=== PATIENT | male | born 1980 | race Caucasian/White ===

== ENCOUNTER → 2021-05-07 | Outpatient (CLI) | payer OTHER ==
[~2021-05-07] MED LIST: LISI5 PO; Naprosyn500 MG PO; Paxil40 MG PO; Percocet 7.5-31 EACH PO; Valium5 MG PO
== END ==
LOC: LAB SHORT 14:50 → LAB 14:50
DX: D22.61 Melanocytic nevi of right upper limb, including shoulder (principal); D22.62 Melanocytic nevi of left upper limb, including shoulder; L08.9 Local infection of the skin and subcutaneous tissue, unspecified; L57.8 Other skin changes due to chronic exposure to nonionizing radiation; Z71.89 Other specified counseling
CPT/HCPCS: 87070; 87205